=== PATIENT | male | born 1990 | race Caucasian/White ===

== ENCOUNTER 2022-12-23 21:51 | Emergency (ER) | payer OTHER, SELFPAY ==
[2022-12-23] VITALS (8 sets, daily range): BP systolic 126–165; BP diastolic 81–97; PULSE 69–80; RESP 10; TEMP 36.3; O2SAT 96–97; BMI 28.7
--- NOTE | 2022-12-23 22:16 | CRLHL7_ITS ---
For Patients: As a result of the Century Cures Act, medical imaging exams and procedure reports are released immediately into your electronic medical record. You may view this report before your referring provider. If you have questions, please contact your health care provider. INDICATION: .LT FLANK PAIN RADIATING TO GROIN TECHNIQUE: CT abdomen and pelvis without contrast. COMPARISON: None. FINDINGS: Lower chest: The visualized lower lungs are aerated. No pleural or pericardial effusion. ABDOMEN: Liver: Normal attenuation. Gallbladder and biliary: Normal gallbladder without radiopaque stone. Normal caliber bile ducts. Spleen: Normal size and attenuation. Pancreas: The noncontrast pancreas is homogeneous in attenuation without peripancreatic inflammatory changes or ductal dilatation. Adrenal glands: Normal adrenal glands. Kidneys and ureters: Punctate bilateral nonobstructing nephrolithiasis. Mild left-sided hydroureteronephrosis secondary to a 1 millimeter stone in the UVJ. No right-sided hydroureteronephrosis. GI tract: The stomach is relatively decompressed. Normal caliber small and large bowel loops. Normal appendix. Vascular structures: Normal caliber abdominal aorta. Lymph nodes: No lymphadenopathy in the abdomen or pelvis by size criteria. Peritoneum: No free air, free fluid, or focal drainable fluid collection. PELVIS: Genitourinary system: Normal urinary bladder. Normal size prostate. SKELETAL STRUCTURES AND SOFT TISSUES: Bilateral gynecomastia. IMPRESSION: 1. Mild left-sided hydroureteronephrosis secondary to a 1 millimeter stone in the UVJ. 2. Punctate bilateral nonobstructive nephrolithiasis. Please note that all CT scans at this facility use dose modulation, iterative reconstruction, and/or weight-based dosing when appropriate to reduce radiation dose to as low as reasonably achievable. Dictated by Ray Cummins MD @ 12/23/2022 11:44:49 PM (Electronically Signed)
--- NOTE | 2022-12-23 22:19 | ED_ITS ---
HPI - Abdominal Pain General Chief Complaint: Abdominal Pain Stated Complaint: Left side back and abdominal pain Time Seen by Provider: 12/23/22 21:56 History of Present Illness HPI narrative: 32-year-old man presenting to the emergency department with complaint of left sided abdomen flank area sharp pain. Fairly constant. Did have a workout this morning including biking and some lifting but does not recall any particular injury. While at rest on the couch then felt what sounds like fairly abrupt onset of pain. Took some ibuprofen settled down and then has returned early afternoon. Increasing nausea did vomit once. Is not nauseated now. Pain persists. Seems to radiate down into his left testicle. No dysuria. Admits that has not been drinking very much. No hematuria. generally drinks a good deal of coffee. father with h/o kidney stones Related Data Previous Rx's Medication Instructions Recorded tamsulosin 0.4 mg capsule (Flomax) 0.4 mg PO DAILY #14 caps 12/24/22 Review of Systems Status of ROS Reports: 6 or more systems reviewed and unremarkable except as noted in History and below PFSH PFS Social History Smoking Status: Never smoker Do you use any of these nicotine containing products: None Second hand tobacco smoke exposure: No How often do you have a drink containing alcohol: monthly or less AUDIT-C Alcohol total score: 1 Non-prescribed substance use: denies use Exam Narrative: Exam Narrative: Tall well-built. pleasant. gregarious. appears mildly uncomfortable. skin a little clammy. cn 2 - 12 appears intact. lungs are clear. heart rrr and no mrg. back is without tenderness. no si area pain. negative michela's and anterior hip compression. moving all extremities without difficulty and well perfused. abdomen is soft and not particularly tender other than trace left percussive tenderness. no mass. no inguinal swelling or pain. no pain with hip flexion. gu exam not done. Const: Vital Signs, click to edit/add: Vital Signs - 24 hr 12/23/22 21:56 12/23/22 22:57 12/23/22 22:59 Temperature 97.3 F L Pulse Rate 72 74 Pulse Rate [Pulse Oximeter] 80 Respiratory Rate 10 L Blood Pressure 140/82 H Blood Pressure [Le ft Upper Arm] 165/97 H Pulse Oximetry 96 97 96 Oxygen Delivery Me thod Room Air 12/23/22 23:00 12/23/22 23:02 12/23/22 23:03 Temperature Pulse Rate 70 74 71 Pulse Rate [Pulse Oximeter] Respiratory Rate Blood Pressure 148/85 H Blood Pressure [Le ft Upper Arm] Pulse Oximetry 96 96 97 Oxygen Delivery Me thod 12/23/22 23:30 12/23/22 23:32 12/24/22 00:00 Temperature Pulse Rate 69 70 66 Pulse Rate [Pulse Oximeter] Respiratory Rate Blood Pressure 126/81 Blood Pressure [Le ft Upper Arm] Pulse Oximetry 96 97 97 Oxygen Delivery Me thod 12/24/22 00:01 12/24/22 00:02 Temperature Pulse Rate 75 73 Pulse Rate [Pulse Oximeter] Respiratory Rate Blood Pressure 132/97 H Blood Pressure [Le ft Upper Arm] Pulse Oximetry 97 96 Oxygen Delivery Me thod Documenting provider has reviewed patient's vital signs: yes Course Vital Signs Vital signs: Initial Vital Signs Temperature 97.3 F L 12/23/22 21:56 Temperature Source Temporal Artery Scan 12/23/22 21:56 Pulse Rate 80 12/23/22 21:56 Pulse Rhythm 12/23/22 21:56 Respiratory Rate 10 L 12/23/22 21:56 Blood Pressure 165/97 H 12/23/22 21:56 Blood Pressure Mean 119 12/23/22 21:56 Blood Pressure Position Sitting 12/23/22 21:56 Pulse Oximetry 96 12/23/22 21:56 Oxygen Delivery Method 12/23/22 21:56 Vital Signs Temperature 97.3 F L 12/23/22 21:56 Pulse Rate 80 12/23/22 21:56 Respiratory Rate 10 L 12/23/22 21:56 Blood Pressure 165/97 H 12/23/22 21:56 Pulse Oximetry 96 12/23/22 21:56 Oxygen Delivery Method 12/23/22 21:56 Temperature 97.3 F L 12/23/22 21:56 Pulse Rate 73 12/24/22 00:02 Respiratory Rate 10 L 12/23/22 21:56 Blood Pressure 132/97 H 12/24/22 00:01 Pulse Oximetry 96 12/24/22 00:02 Oxygen Delivery Method 12/23/22 21:56 MDM - Abdominal Pain MDM Narrative Medical decision making narrative: iv and ns fluids established. ddx includes back strain/radiculitis, uti, constipation, hernia, epididymoorchitis though i think ureteral stone and colic most likely. can image later but prudent to do today and Chip notes quality of his med insurance. discussed pain management. will begin with ketorolac. noncon ct abd/pelvis reviewed by me reveals sub-3mm distal left ureteral stone and associated hydro. also numerous punctate bilateral nephrolithiasis. ua most notable for ketones. given a dose of flomax and with recurrence of nausea, also given zofran on reassessment is markedly improved, comfortable. see pt dc plan Lab Data Attestation: I reviewed the patient's lab results. Labs: Lab Results 12/23/22 12/23/22 12/23/22 Range/Units 22:40 22:40 22:55 WBC 12.25 H (4.50-11.00) K/uL RBC 5.54 (4.30-5.90) m/uL Hgb 17.0 (13.5-17.5) gm/dL Hct 48.9 (37.0-53.0) % MCV 88 (80-100) fL MCH 31 (26-34) pg MCHC 35 (32-36) gm/dL RDW Coeff of Asha 11.8 (11.5-15.5) % Plt Count 221 (140-440) K/uL Neut % (Auto) 83.0 H (42.0-72.0) % Lymph % (Auto) 9.9 L (20-44) % [place] % (Auto) 5.3 (0.0-11.0) % Eos % (Auto) 0.5 (0.0-7.0) % Baso % (Auto) 0.2 (0.0-3.0) % Neut # (Auto) 10.20 H (1.7-7.0) K/uL Lymph # (Auto) 1.20 (0.90-2.90) K/uL [place] # (Auto) 0.60 (0.00-0.90) K/UL Eos # (Auto) 0.10 (0.00-0.50) K/uL Baso # (Auto) 0.00 (0.00-0.30) K/uL Sodium 138 (135-149) mmol/L Potassium 3.8 (3.6-5.1) mmol/L Chloride 103 (96-114) mmol/L Carbon Dioxide 26 (20-32) mmol/L BUN 22 (5-24) mg/dL Creatinine 1.5 (0.5-1.5) mg/dL Estimated Creat Clear 84.50 Estimated GFR 63 ml/min Glucose 127 H (60-115) mg/dL Calcium 9.3 (8.4-10.6) mg/dL Urine Color Yellow (Yellow) Urine Appearance Slightly Cloudy A (Clear) Urine pH 7.0 (5.0-8.5) Ur Specific [place] 1.020 (1.000-1.030) Urine Protein 1+ A (Negative) Urine Glucose (UA) Negative (Negative) Urine Ketones 3+ A (Negative) Urine Blood Negative (Negative) Urine Nitrite Negative (Negative) Urine Bilirubin Negative (Negative) Urine Urobilinogen 0.2 (0.2-1.0) Ur Leukocyte Esterase Negative (Negative) Urine RBC 0-2 (0-2) Urine WBC 0-2 (0-5) Ur Squamous Epith Cells Few (None-Few) Urine Bacteria Moderate A (None) Urine Mucus Few A (None) Discharge Plan Discharge Clinical Impression: Ureteral calculus, Nephrolithiasis, Ureteral colic, Dehydration Patient Disposition: Home, Self-Care Condition: Improved Additional Instructions: Continue to focus on hydration trying to drink 2-3 L of water daily. Strain your urine over this next week. Can take up to 800 mg of ibuprofen per dose or alternatively up to 500 mg of naproxen 2 times daily. Either can be combined with the medications prescribed today. Be seen/return for marked increase in/uncontrolled pain, repeated vomiting, fever, pain lasting to 5 days. Flomax at pharmacy. Percocet and Zofran from [employer]. Prescriptions: New tamsulosin [Flomax] 0.4 mg capsule 0.4 mg PO DAILY Qty: 14 0RF Follow Up/Referrals: Provider,Not a Local [Primary Care Provider] - Stand Alone Forms: [employer] Info Instructions
[2022-12-23] MEDS: KETOROLAC 30 MG/ML inj IVP (22:38)
[2022-12-23] MEDS: 0.9 % SODIUM CHLORIDE 1000 ml 1,000 ML IV (22:38)
[2022-12-23 22:47] LABS: Basophils Percent Auto 0.2 % (0.0-3.0); Eosinophils Percent Auto 0.5 % (0.0-7.0); Hematocrit 48.9 % (37.0-53.0); Immature Granulocytes Pct Auto 1.1 %; Lymphocytes Percent Auto 9.9 % (20-44); Mean Corpuscular HGB Conc 35 gm/dL (32-36); Mean Corpuscular Hemoglobin 31 pg (26-34); Mean Corpuscular Volume 88 fL (80-100); Monocytes Percent Auto 5.3 % (0.0-11.0); Platelet Count* 221 K/uL (140-440); RDW Coefficient of Variation % 11.8 % (11.5-15.5); Red Blood Count 5.54 m/uL (4.30-5.90); White Blood Count* 12.25 K/uL (4.50-11.00)
[2022-12-23 23:06] LABS: Slide Review Reflex No
[2022-12-23 23:09] LABS: Chloride* 103 mmol/L (96-114); Potassium* 3.8 mmol/L (3.6-5.1); Sodium* 138 mmol/L (135-149)
[2022-12-23 23:12] LABS: Blood Urea Nitrogen* 22 mg/dL (5-24); Carbon Dioxide* 26 mmol/L (20-32); Creatinine* 1.5 mg/dL (0.5-1.5); Estimated Glomerular Filt Rate 63 ml/min; Glucose* 127 mg/dL (60-115)
[2022-12-23 23:12] LABS: Appearance Urine Slightly Cloudy (Clear); Bilirubin Urine Negative (Negative); Blood Urine Negative (Negative); Color Urine Yellow (Yellow); Glucose Urine Negative (Negative); Ketones Urine 3+ (Negative); Leukocyte Esterase Urine Negative (Negative); Nitrite Urine Negative (Negative); Protein Urine 1+ (Negative); Urobilinogen Urine 0.2 (0.2-1.0)
[2022-12-23 23:13] LABS: Calcium* 9.3 mg/dL (8.4-10.6)
[2022-12-23] MEDS: TAMSULOSIN HCL 0.4 MG CAPSULE PO (23:13)
[2022-12-23] MEDS: ONDANSETRON 2 MG/ML inj 4 MG IVP (23:13)
[2022-12-23 23:21] LABS: Bacteria Urine Moderate; Mucus Urine Few; RBC Urine 0-2 (0-2); Squamous Epithelial Cell Urine Few (None-Few); WBC Urine 0-2 (0-5)
[2022-12-24] VITALS: PULSE 66; O2SAT 97
[2022-12-24 00:01] VITALS: BP 132/97; PULSE 75; O2SAT 97
[2022-12-24 00:02] VITALS: PULSE 73; O2SAT 96
== END 2022-12-24 00:34 | disposition home or self-care (01) ==
PROVIDERS: Emergency Provider Family Medicine
DX: N23 Unspecified renal colic (principal); N20.0 Calculus of kidney; E86.0 Dehydration
CPT/HCPCS: 36415; 74176; 80048; 81001; 85025; 87086; 96361; 96374; 96375; 99284; 99285; A9270; J1885; J2405; J7030

== ENCOUNTER 2024-07-18 12:39 | Emergency (ER) | payer OTHER, SELFPAY ==
[2024-07-18 12:43] VITALS: BP 146/104; PULSE 73; RESP 18; O2SAT 98; BMI 28.7
--- NOTE | 2024-07-18 12:58 | CT_ITS ---
Patient: DORA JOYCE Facility:?[facility] Patient ID:?[id number] Site Patient ID:?[id number]. Site :?[id number] Study:?CT-Abdomen/Pelvis without-07/18/2024 1:20:30 PM Ordering Physician:Christie Jacobson Final Report: INDICATION: Right flank pain. History of urolithiasis COMPARISON: December 23, 2022 TECHNIQUE: CT examination of the abdomen and pelvis was performed without intravenous contrast. Thin section axial images were obtained from the lung bases through the pubic symphysis. Oral contrast was not administered. Please note that all CT scans at this facility use dose modulation, iterative reconstruction, and/or weight-based dosing when appropriate to reduce radiation dose to as low as reasonably achievable. FINDINGS: LUNG BASES: The lung bases as visualized appear normal.The heart size is normal at the lung bases. LIVER/BILIARY SYSTEM:The liver is normal in size and configuration given the lack of intravenous contrast. There is no visible focal mass and there is no intra- or extra hepatic biliary ductal dilatation.Contracted but otherwise unremarkable appearing gallbladder ADRENALS: Normal non-contrast appearance KIDNEYS, URETERS and BLADDER:Intrarenal calculi bilaterally. Mild right hydronephrosis and right hydroureter due to a 2.5 millimeter calculus in the mid right ureter at about the level of the umbilicus. No calculi distal to this level or within the bladder. SPLEEN:Normal non-contrast appearance. PANCREAS: Normal non-contrast appearance. RETROPERITONEUM and MESENTERY: There is no mass, adenopathy or aortic aneurysm. GASTROINTESTINAL SYSTEM: There is no evidence of diverticulitis, colitis, mechanical obstruction, or appendicitis. The small bowel as visualized appears normal. PELVIS: No mass, adenopathy or free fluid. OSSEOUS STRUCTURES and ABDOMINAL WALL: There is an age-appropriate appearance of the osseous structures.No significant abdominal wall defect. OTHER: No free fluid or free air. IMPRESSION: Intrarenal calculi bilaterally. Right-sided obstructive uropathy is noted due to a 2.5 millimeter calcified calculus in the mid right ureter at about the level of the umbilicus. Please note that all CT scans at this facility use dose modulation, iterative reconstruction, and/or weight-based dosing when appropriate to reduce radiation dose to as low as reasonably achievable. Dictated by John Cates MD @ 07/18/2024 1:31:49 PM Signed by:?John Cates MD @07/18/2024 1:31:49 PM (Electronic Signature)
--- NOTE | 2024-07-18 13:15 | ED.GENADULT ---
HPI - General Adult General Chief complaint: Flank Pain Stated complaint: c/o kidney stone Time Seen by Provider: 07/18/24 12:49 Source: patient Mode of arrival: ambulatory Limitations: no limitations History of Present Illness HPI narrative: 34-year-old male presenting today with right flank pain. Patient states that about 18 months ago he had a left-sided kidney stone and this feels very similar. Her previous stone passed without intervention. He denies nausea or vomiting. He denies fevers or chills. States that sometimes the pain does radiate into the groin area. He states that his urine was much darker than normal this morning. Nothing seems to make the pain better or worse. Patient takes Vyvanse and no other medications. Related Data Previous Rx's ?Medication ?Instructions ?Recorded tamsulosin 0.4 mg capsule (Flomax) 0.4 mg PO DAILY #14 caps 12/24/22 ketorolac 10 mg tablet 10 mg PO TID 5 days #15 tabs 07/18/24 tamsulosin 0.4 mg capsule (Flomax) 0.4 mg PO QHS #14 caps 07/18/24 Allergies Allergy/AdvReac Type Severity Reaction Status Date / Time No Known Drug Allergies Allergy Verified 07/18/24 13:01 Review of Systems Status of ROS: Reports: 10 or more systems reviewed and unremarkable except as noted in History and below [facility] Social History Smoking Status: Never smoker Do you use any of these nicotine containing products: None Second hand tobacco smoke exposure: No How often do you have a drink containing alcohol: monthly or less AUDIT-C Alcohol total score: 1 Non-prescribed substance use: denies use Exam Narrative: Exam Narrative: Well-nourished well-developed patient in no acute distress. Alert and oriented. Answers questions appropriately. Mood and affect are appropriate. Thoughts are goal oriented and rational. No tangential or magical thinking noted. Patient speaks in full sentences without needing to catch his breath. HEENT: Normocephalic atraumatic. Pupils are equally round reactive to light. Extraocular muscles are intact. Conjunctivae are moist without any icterus noted. Moist mucous membranes. Cardiovascular: Heart is regular rate and rhythm S1 and S2 are present without any murmurs. Lungs: Clear to auscultation bilaterally no wheezes rhonchi or rales are appreciated. Patient takes deep breaths without any discomfort. Abdomen: Soft and nontender nondistended with normal bowel sounds. No guarding or rebound. No masses or organomegaly appreciated. Very mild right-sided CVA tenderness. Skin: Well perfused. Const: Vital Signs, click to edit/add: Vital Signs - 24 hr 07/18/24 12:43 Pulse Rate [Left P ulse Oximeter] 73 Respiratory Rate 18 Blood Pressure [Ri ght Upper Arm] 146/104 H Pulse Oximetry 98 Oxygen Delivery Me thod Room Air Course Course ED Course: UA shows 3+ blood with greater than 100 rbc's. Normal lactate. CBC unremarkable. Chemistries are unremarkable. Ultrasound shows a 2.5 mm ureteral stone. No evidence of infection. Vital Signs Vital signs: Initial Vital Signs Pulse Rate 73 07/18/24 12:43 Respiratory Rate 18 07/18/24 12:43 Blood Pressure 146/104 H 07/18/24 12:43 Blood Pressure Mean 118 H 07/18/24 12:43 Blood Pressure Position Sitting 07/18/24 12:43 Pulse Oximetry 98 07/18/24 12:43 Oxygen Delivery Method Room Air 07/18/24 12:43 Vital Signs Pulse Rate 73 07/18/24 12:43 Respiratory Rate 18 07/18/24 12:43 Blood Pressure 146/104 H 07/18/24 12:43 Pulse Oximetry 98 07/18/24 12:43 Oxygen Delivery Method Room Air 07/18/24 12:43 Pulse Rate 73 07/18/24 12:43 Respiratory Rate 18 07/18/24 12:43 Blood Pressure 146/104 H 07/18/24 12:43 Pulse Oximetry 98 07/18/24 12:43 Oxygen Delivery Method Room Air 07/18/24 12:43 Medical Decision Making MDM Narrative Medical decision making narrative: 34-year-old male with a right-sided kidney stone. Will treat with Flomax and Toradol p.r.n.. Increase fluid intake. IV fluids not given today as there is a shortage of IV fluids. Lab Data Lab results reviewed: Yes I reviewed the patient's lab results Labs: Lab Results 07/18/24 07/18/24 Range/Units 13:07 14:03 WBC 5.70 (4.50-11.00) K/uL RBC 5.21 (4.30-5.90) m/uL Hgb 15.9 (13.5-17.5) gm/dL Hct 46.7 (37.0-53.0) % MCV 90 (80-100) fL MCH 31 (26-34) pg MCHC 34 (32-36) gm/dL RDW Coeff of Asha 12.0 (11.5-15.5) % Plt Count (140-440) K/uL Neut % (Auto) 61.8 (42.0-72.0) % Lymph % (Auto) 27.0 (20-44) % [place] % (Auto) 9.1 (0.0-11.0) % Eos % (Auto) 1.4 (0.0-7.0) % Baso % (Auto) 0.5 (0.0-3.0) % Neut # (Auto) 3.52 (1.7-7.0) K/uL Lymph # (Auto) 1.54 (0.90-2.90) K/uL [place] # (Auto) 0.50 (0.00-0.90) K/UL Eos # (Auto) 0.08 (0.00-0.50) K/uL Baso # (Auto) 0.03 (0.00-0.30) K/uL Abs Immat Gran (auto) 0.01 (0.00-0.30) K/uL Imm/Tot Granulo (auto) 0.2 % Sodium 138 (135-149) mmol/L Potassium 4.2 (3.6-5.1) mmol/L Chloride 105 (96-114) mmol/L Carbon Dioxide 25 (20-32) mmol/L Anion Gap 8 (7-15) mEq/L BUN 16 (5-24) mg/dL Creatinine 0.9 (0.5-1.5) mg/dL Estimated Creat Clear 138.23 Estimated GFR 115 ml/min Glucose 76 (60-115) mg/dL Lactate 1.0 (0.5-1.9) mmol/L Calcium 9.2 (8.4-10.6) mg/dL Total Bilirubin 1.3 (0.1-1.5) mg/dL Direct Bilirubin 0.3 (0.0-0.5) mg/dL AST 42 H (12-35) U/L ALT 54 H (4-50) U/L Alkaline Phosphatase 51 (40-150) U/L C-Reactive Protein < 0.5 L (0.5-1.0) mg/dL Total Protein 7.1 (6.0-8.3) g/dL Albumin 4.5 (3.3-5.0) g/dL Lipase 116 (23-300) U/L Urine Color Yellow (Yellow) Urine Appearance Slightly Cloudy A (Clear) Urine pH 7.5 (5.0-8.5) Ur Specific [place] 1.020 (1.000-1.030) Urine Protein Negative (Negative) Urine Glucose (UA) Negative (Negative) Urine Ketones Negative (Negative) Urine Blood 3+ A (Negative) Urine Nitrite Negative (Negative) Urine Bilirubin Negative (Negative) Urine Urobilinogen 1.0 (0.2-1.0) Ur Leukocyte Esterase Negative (Negative) Urine RBC >100 A (0-2) Urine WBC 2-5 (0-5) Ur Squamous Epith Cells None (None-Few) Amorphous Sediment Moderate A (None) Urine Bacteria Few A (None) Urine Mucus Moderate A (None) Imaging Data CT scan - abdomen: Attestation: I have reviewed the pertinent imaging results. Radiologist's impression: TECHNIQUE: CT examination of the abdomen and pelvis was performed without intravenous contrast. Thin section axial images were obtained from the lung bases through the pubic symphysis. Oral contrast was not administered. Please note that all CT scans at this facility use dose modulation, iterative reconstruction, and/or weight-based dosing when appropriate to reduce radiation dose to as low as reasonably achievable. FINDINGS: LUNG BASES: The lung bases as visualized appear normal.The heart size is normal at the lung bases. LIVER/BILIARY SYSTEM:The liver is normal in size and configuration given the lack of intravenous contrast. There is no visible focal mass and there is no intra- or extra hepatic biliary ductal dilatation.Contracted but otherwise unremarkable appearing gallbladder ADRENALS: Normal non-contrast appearance KIDNEYS, URETERS and BLADDER:Intrarenal calculi bilaterally. Mild right hydronephrosis and right hydroureter due to a 2.5 millimeter calculus in the mid right ureter at about the level of the umbilicus. No calculi distal to this level or within the bladder. SPLEEN:Normal non-contrast appearance. PANCREAS: Normal non-contrast appearance. RETROPERITONEUM and MESENTERY: There is no mass, adenopathy or aortic aneurysm. GASTROINTESTINAL SYSTEM: There is no evidence of diverticulitis, colitis, mechanical obstruction, or appendicitis. The small bowel as visualized appears normal. PELVIS: No mass, adenopathy or free fluid. OSSEOUS STRUCTURES and ABDOMINAL WALL: There is an age-appropriate appearance of the osseous structures.No significant abdominal wall defect. OTHER: No free fluid or free air. IMPRESSION: Intrarenal calculi bilaterally. Right-sided obstructive uropathy is noted due to a 2.5 millimeter calcified calculus in the mid right ureter at about the level of the umbilicus. Discharge Plan Discharge Clinical Impression: Kidney stone Patient Disposition: Home, Self-Care Condition: Stable Additional Instructions: Increase water intake. Return to the ER if you develop fever or pain that cannot be controlled. Prescriptions: New tamsulosin [Flomax] 0.4 mg capsule 0.4 mg PO QHS Qty: 14 0RF ketorolac 10 mg tablet 10 mg PO TID 5 Days Qty: 15 0RF No Action tamsulosin [Flomax] 0.4 mg capsule 0.4 mg PO DAILY Qty: 14 0RF Follow Up/Referrals: Provider,Not a Local [Non-Staff] - Stand Alone Forms: [employer] Info Instructions
--- OUTSIDE RECORDS SUMMARY | 2024-07-18 13:25 | XMS_ITS | Clinical Summary ---
Author Organization [facility] Address [place], [place] [address] Care Team Providers Care Fire Dispatcher Name Role Phone Juvencio Russell MD Primary Care Provider Allergies No known active allergies Medications Medication Sig Dispensed Refills Start Date End Date Status finasteride (PROPECIA) 1 mg tabletIndications:Male pattern baldness Take 1 Tablet (1 mg) by mouth every morning. 90 Tablet 3 10/21/2023 Active minoxidiL (ROGAINE) 2 % topical solution 10/11/2023 Active lisdexamfetamine (Vyvanse) 50 mg capsuleIndications:ADH D (attention deficit hyperactivity disorder), inattentive type Take 1 Capsule (50 mg) by mouth once daily. 30 Capsule 06/16/2024 Active loratadine (CLARITIN) 10 mg tablet Take 10 mg by mouth once daily. 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 Encounters Date Type Department Care Team Description 06/28/2024 Telephone [facility] [address] [place] [address] Juvencio Russell MD Questions 06/01/2024 8:45 AM CDT Office Visit [facility] [address] [place] [address] Juvencio Russell MD Medication Management; Elbow Burn (left) 06/01/2024 Travel 04/18/2024 Telephone [facility] [address] [place] [address] Juvencio Russell MD Medication Management (Clarifying refills dates for Vyvanse) from Last 3 Months Immunizations Name Administration Dates Next Due COVID-19 VACCINE SPIKEVAX (M ODERNA 50MCG/0.5ML) 12YO+ PFS 10/21/2023 COVID-19 vaccine (Pfizer-BioNTech 30mcg/0.3mL) P F, MDV 02/06/2021,01/13/2021 Influenza, IIV4 10/21/2023 Influenza,CCIIV4 PRESERV FREE 09/23/2019 Tdap 05/26/2019 Family History Medical History Relation Name Comments Heart Disease Father CAD Hypertension Father Nephrolithiasis Father Heart Disease Maternal Grandfather [place] Heart Disease Paternal Grandfather [place] Relation Name Status Comments Father Maternal Grandfather Paternal Grandfather Social History Tobacco Use Types Packs/Day Years Used Date Smoking Tobacco: Never Smokeless Tobacco: Never Alcohol Use Standard Drinks/Week Comments Not Currently 0 (1 standard drink = 0.6 oz pur e alcohol) PHQ-2 Answer Date Recorded PHQ-2 TOTAL SCORE 0 06/01/2024 Social Connections Answer Date Recorded Frequency of Communication with Friends and Fami ly Not on file 05/06/2024 Financial Resource Strain Answer Date R ecorded Difficulty of Paying Living Expenses 3 05/06/2023 Difficulty of Paying Living Expenses Not on file 05/06/2023 Food Insecurity Answer Date Recorded Worried About Running Out of Food in the Last Ye ar 1 05/06/2023 Transportation Needs Answer Date Record ed Lack of Transportation (Medical) 1 05/06/2023 Housing Stability Answer Date Recorded Unable to Pay for Housing in the Last Year 1 05/06/2023 Sex and Gender Information Value Date Recorded Sex Assigned at Not on file Gender Identity Not on file Sexual Orientation Not on file Obstetrics History Last Filed Vital Signs Vital Sign Reading Time Taken Comments Blood Pressure 132/86 06/01/2024 8:49 AM CDT Pulse 68 06/01/2024 8:49 AM CDT Temperature - - Respiratory Rate - - Oxygen Saturation - - Inhaled Oxygen Concentration - - Weight 103.9 kg (229 lb) 06/01/2024 8:49 AM CDT Height 190.5 cm (6' 3) 06/01/2024 8:49 AM CDT Body Mass Index 28.62 06/01/2024 8:49 AM CDT Plan of Treatment Health Maintenance Due Date Last Done Comments HIV for age 15-65 2005 Hepatitis C screening for age 18-79 2008 COVID-19 vaccine series ( season) 2024 10/21/2023, 09/15/2021, 02/06/2021, Additional history exists Influenza for age 9-49 06/11/2024 10/21/2023, 2018 BMI (ht and wt on same day) for age 18+ 06/01/2025 06/01/2024, 01/31/2024, 05/06/2023, Additional history exists Depression screening for age 12+ 06/01/2025 06/01/2024, 05/06/2023, 12/10/2020 Tetanus booster 05/26/2029 05/26/2019 Tdap Completed 05/26/2019 Pneumococcal series for age 6-64 Aged Out No longer eligible based on patient's age to complete this topic Care Teams Fire Dispatcher Relationship Specialty Start [place] [address] [place] [address] PCP - General Family Practice 12/06/20
[2024-07-18 13:42] LABS: Appearance Urine Slightly Cloudy (Clear); Bilirubin Urine Negative (Negative); Blood Urine 3+ (Negative); Color Urine Yellow (Yellow); Glucose Urine Negative (Negative); Ketones Urine Negative (Negative); Leukocyte Esterase Urine Negative (Negative); Nitrite Urine Negative (Negative); Protein Urine Negative (Negative); pH Urine 7.5 (5.0-8.5)
[2024-07-18 14:05] LABS: Amorphous Sediment Urine Moderate; Bacteria Urine Few; Mucus Urine Moderate; RBC Urine >100 (0-2)
[2024-07-18 14:10] LABS: Basophils Absolute Auto 0.03 K/uL (0.00-0.30); Basophils Percent Auto 0.5 % (0.0-3.0); Eosinophils Absolute Auto 0.08 K/uL (0.00-0.50); Eosinophils Percent Auto 1.4 % (0.0-7.0); Hematocrit 46.7 % (37.0-53.0); Hemoglobin* 15.9 gm/dL (13.5-17.5); Immature Granulocytes Abs Auto 0.01 K/uL (0.00-0.30); Immature Granulocytes Pct Auto 0.2 %; Lymphocytes Absolute Auto 1.54 K/uL (0.90-2.90); Mean Corpuscular HGB Conc 34 gm/dL (32-36); Mean Corpuscular Hemoglobin 31 pg (26-34); Mean Corpuscular Volume 90 fL (80-100); Monocytes Percent Auto 9.1 % (0.0-11.0); Neutrophils Absolute Auto 3.52 K/uL (1.7-7.0); Neutrophils Percent Auto 61.8 % (42.0-72.0); Red Blood Count 5.21 m/uL (4.30-5.90)
[2024-07-18 14:27] LABS: Slide Review Reflex No
[2024-07-18 14:30] LABS: Albumin* 4.5 g/dL (3.3-5.0); Chloride* 105 mmol/L (96-114)
[2024-07-18 14:31] LABS: Potassium* 4.2 mmol/L (3.6-5.1); Sodium* 138 mmol/L (135-149)
[2024-07-18 14:33] LABS: Creatinine* 0.9 mg/dL (0.5-1.5); Est. Creatinine Clearance* 138.23; Estimated Glomerular Filt Rate 115 ml/min
[2024-07-18 14:34] LABS: Alanine Aminotransferase* 54 U/L (4-50); Alkaline Phosphatase* 51 U/L (40-150); Anion Gap 8 mEq/L (7-15); Aspartate Amino Transferase* 42 U/L (12-35); Bilirubin Direct* 0.3 mg/dL (0.0-0.5); Bilirubin Total* 1.3 mg/dL (0.1-1.5); Blood Urea Nitrogen* 16 mg/dL (5-24); Calcium* 9.2 mg/dL (8.4-10.6); Carbon Dioxide* 25 mmol/L (20-32); Glucose* 76 mg/dL (60-115); Lipase* 116 U/L (23-300); Total Protein* 7.1 g/dL (6.0-8.3)
[2024-07-18 14:40] VITALS: BP 132/87; PULSE 71; RESP 18; TEMP 36.8; O2SAT 99
[2024-07-18 14:46] LABS: C Reactive Protein* < 0.5 mg/dL (0.5-1.0)
== END 2024-07-18 15:07 | disposition home or self-care (01) ==
PROVIDERS: Emergency Provider Family Medicine; PCP Family Medicine
DX: N20.0 Calculus of kidney (principal)
CPT/HCPCS: 36415; 74176; 80048; 80076; 81001; 83605; 83690; 85025; 86140; 87086; 96372; 99284

== ENCOUNTER 2025-08-18 12:35 | Emergency (ER) | payer OTHER, SELFPAY ==
--- OUTSIDE RECORDS SUMMARY | 2025-08-18 12:37 | XMS_ITS | Encounter Summary ---
Author Organization [place] Address [facility] [place] [address] Care Team Providers Care Administration Specialist Name Role Phone No Ref-Primary, Physician Primary Care Provider Nicholas Robbins MD Unavailable Sergo Tesfaye MD Unavailable Reason for Visit * Reason Onset Date Comments Appointment 01/23/2025 Left elbow nerve ultrasound to assess for ulnar nerve entrapment Encounter Details Date Type Department Care Team (Late st Contact Info) Description 01/23/2025 [facility] [address] [place] [address] None Appointment (Left elbow nerve ultrasound to assess for ulnar nerve entrapment) Social History Tobacco Use Types Packs/Day Years Used Date Smoking Tobacco: Never Smokeless Tobacco: Never Alcohol Use Standard Drinks/Week Comments Yes 0 (1 standard drink = 0.6 oz pur e alcohol) rarely Sex and Gender Information Value Date Recorded Sex Assigned at Not on file Legal Sex Male 7:29 AM CDT Gender Identity Not on file Sexual Orientation Not on file documented as of this encounter Miscellaneous Notes * Telephone Encounter - Era Morales - 01/23/2025 10:43 AM CDT [facility] Call Center Phone Message May a detailed message be left on voicemail: yes Reason for Call: Pt has an order for an Left elbow nerve ultrasound to assess for ulnar nerve entrapment referred by EVERT DAVIS. Global Professional unable to schedule given protocols. Please contact Pt to schedule at [phone] Action Taken: Message routed to: [facility] Travel Screening: Not Applicable documented in this encounter Plan of Treatment Upcoming Encounters Date Type Department Care Team (Latest Contact Info) Description 08/30/2025 9:15 AM PUMPER GAUGER APPRENTICE Hospital Encounter [address] [phone] Sergo Tesfaye MD [address] [place], [place] [address] 08/30/2025 9:15 AM PUMPER GAUGER APPRENTICE - 08/30/2025 10:40 AM PUMPER GAUGER APPRENTICE Surgery [address] [phone] Sergo Tesfaye MD [address] [place], [place] [id number] RELEASE, CUBITAL TUNNEL, ULNAR NERVE TRANSPOSITION 09/12/2025 10:30 AM PUMPER GAUGER APPRENTICE Office Visit [facility] [address] [place], [place] [address] Seng Philip PA-C [place] [address] [facility] [place] [address] Scheduled Procedures Name Priority Associated Diagnoses Date/Ti me RELEASE, CUBITAL TUNNEL Ulnar nerve entrapment at elbow, left 08/30/2025 9:15 AM PUMPER GAUGER APPRENTICE documented as of this encounter Visit Diagnoses Not on filedocumented in this encounter Care Teams Administration Specialist Relationship Specialty Start Date End Date No Ref-Primary, Physician PCP - General 02/19/25 Nicholas Robbins MD [address] [place] [address] [id number] [place], [place] [address] Assigned Neuroscience Provider 03/02/25 Sergo Tesfaye MD [address] [place] [address] Assigned Musculoskeletal Provider 04/02/25 documented as of this encounter
--- OUTSIDE RECORDS SUMMARY | 2025-08-18 12:37 | XMS_ITS | Clinical Summary ---
Author Organization [facility] Address [address] [place] [id number] Care Team Providers Care Early Intervention School Psychologist Name Role Phone Juvencio Russell MD Primary Care Provider Allergies No known active allergies Medications minoxidiL (ROGAINE) 2 % topical solution 4 Active loratadine (CLARITIN) 10 mg tablet Take 10 mg by mouth once daily. Active dextroamphetamine -amphetamine (AdderalL) 10 mg tabletIndications :ADHD (attention deficit hyperactivity disorder), inattentive type Take 1 Tablet (10 mg) by mouth once daily. Take in afternoon 30 Tablet 5 Active lisdexamfetamine (Vyvanse) 40 mg capsuleIndication s:ADHD (attention deficit hyperactivity disorder), inattentive type Take 1 Capsule (40 mg) by mouth once daily. 30 Capsule 5 025 Active lisdexamfetamine (Vyvanse) 40 mg capsuleIndication s:ADHD (attention deficit hyperactivity disorder), inattentive type Take 1 Capsule (40 mg) by mouth once daily. 30 Capsule 5 026 Active lisdexamfetamine (Vyvanse) 40 mg capsuleIndication s:ADHD (attention deficit hyperactivity disorder), inattentive type Take 1 Capsule (40 mg) by mouth once daily. 30 Capsule 6 Active lisdexamfetamine (Vyvanse) 40 mg capsuleIndication s:ADHD (attention deficit hyperactivity disorder), inattentive type Take 1 Capsule (40 mg) by mouth once daily. 30 Capsule 06 025 Discontin ued(*Med complete/ Regimen complete/ Level of care change) lisdexamfetamine (Vyvanse) 40 mg capsuleIndication s:ADHD (attention deficit hyperactivity disorder), inattentive type Take 1 Capsule (40 mg) by mouth once daily. 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 Sergo Tesfaye at [facility]) 08/13/2025 Travel 07/16/2025 Telephone [facility] [id number] [place] [address] Juvencio Russell MD Refill Request (dextroamphetamine-am phetamine (AdderalL) 10 mg tablet) 06/27/2025 8:00 AM CDT Ancillary Procedure [facility] [address] [address] [facility] [address] [place] [address] 06/27/2025 Travel from Last 3 Months Immunizations Immunization Administration Dates Next Due COVID-19 VACCINE SPIKEVAX (M ODERNA 50MCG/0.5ML) 12YO+ PFS 09/26/2024,10/21/2023 COVID-19 vaccine ([employer] 30mcg/0.3mL) P F, MDV 02/06/2021,01/13/2021 INFLUENZA, IIV3 PF (AGE >= 6 MO) 09/26/2024 Influenza, IIV4 10/21/2023 Influenza,CCIIV4 PRESERV FREE 09/23/2019 Tdap 05/26/2019 Family History Medical History Relation Name Comments Coronary artery disease Father Heart Disease Father CAD Hypertension Father Nephrolithiasis Father Heart Disease Maternal Grandfather MS Heart Disease Paternal Grandfather MS Relation Name Status Comments Father Maternal Grandfather Paternal Grandfather Social History Tobacco Use Types Packs/Day Years Used Date Smoking Tobacco: Never Smokeless Tobacco: Never Alcohol Use Standard Drinks/Week Comments Not Currently 0 (1 standard drink = 0.6 oz pur e alcohol) PHQ-2 Answer Date Recorded PHQ-2 TOTAL SCORE 0 05/14/2025 Social Connections Answer Date Recorded Do you often feel lonely or isolated from those around you? 0 10/11/2024 Alcohol Use Answer Date Recorded How often do you have a drink containing alcohol ? 1 08/13/2025 How many drinks containing a lcohol do you have on a typical day when you are drinking? 0 08/13/2025 How often do you have five or more drinks on one occasion? 0 08/13/2025 Financial Resource Strain Answer Date R ecorded Difficulty of Paying Living Expenses 3 10/11/2024 Difficulty of Paying Living Expenses Not on file 10/11/2024 Food Insecurity Answer Date Recorded Do you worry your food will run out before you are able to buy more? 1 10/11/2024 Transportation Needs Answer Date Record ed Does lack of transportation keep you from medica l appointments? 1 10/11/2024 Does lack of transportation keep you from work, meetings or getting things that you need? 1 10/11/2024 Housing Stability Answer Date Recorded What is your housing situation today? 1 10/11/2024 Utilities Answer Date Recorded Do you have trouble paying f or utilities (for example, heat, electricity, water, phone)? 1 10/11/2024 Sex and Gender Information Value Date Recorded Sex Assigned at Not on file Legal Sex Male 11:58 AM CDT Gender Identity Not on file Sexual Orientation Not on file Obstetrics History Last Filed Vital Signs Vital Sign Reading Time Taken Comments Blood Pressure 120/90 08/13/2025 8:11 AM PLUG PASTER Pulse 84 08/13/2025 8:09 AM PLUG PASTER Temperature 36.7 C (98.1 F) 08/13/2025 8:09 AM PLUG PASTER Respiratory Rate 12 08/13/2025 8:09 AM PLUG PASTER Oxygen Saturation 97% 08/13/2025 8:09 AM PLUG PASTER Inhaled Oxygen Concentration - - Weight 108.2 kg (238 lb 9.6 oz) 08/13/2025 8:09 AM PLUG PASTER Height 190.5 cm (6' 3) 08/13/2025 8:09 AM PLUG PASTER Body Mass Index 29.82 08/13/2025 8:09 AM PLUG PASTER Plan of Treatment Health Maintenance Due Date Last Done Comments HIV for age 15-65 2005 Hepatitis C screening for age 18-79 2008 Hepatitis B series for 19+ (1 of 3 - 19+ 3-dose series) 2009 HPV series for age 9-45 (1 - 3-dose SCDM series) 2017 Influenza Vaccine (#1) 2025 , 10/21/2023, 09/23/2019 Depression screening for age 12+ 05/14/2026 05/14/2025, 06/01/2024, 05/06/2023, Additional history exists BMI (ht and wt on same day) for age 18+ 08/13/2026 08/13/2025, 05/14/2025, 10/16/2024, Additional history exists Tetanus booster 05/26/2029 05/26/2019 Lipids for age 35-44 05/14/2030 05/14/2025, 01/31/2024, 05/06/2023, Additional history exists RSV vaccine for adults or (1 - 1-dose 75+ series) 2065 Pneumococcal series for age 6-49 Aged Out No longer eligible based on patient's age to complete this topic Procedures Procedure Name Priority Date/Time Associated Diagnosis Comments CT CARDIAC CALCIUM SCORE ONLY WO SINGLE READ Routine 06/27/2025 8:16 AM CDT Family history of early CAD LIPID PANEL W REFLEX MEASURED LDL Routine 05/14/2025 9:04 AM CDT Lipid screening from Last 3 Months or Most Recently Relevant to Health Maintenance Results * CT CARDIAC CALCIUM SCORE ONLY WO SINGLE READ (06/27/2025 8:16 AM CDT) Anatomical Region Laterality Modality Computed Tomogra phy 06/27/2025 10:2 5 AM CDT Narrative 06/27/2025 10:25 AM CDT For Patients: As a result of the Cures Act, medical imaging exams and procedure reports are released immediately into your electronic medical record. You may view this report before your referring provider. If you have questions, please contact your health care provider. CT CARDIAC CALCIUM SCORING PATIENT HISTORY: Evaluate for coronary artery disease. REPORT: High-resolution, ECG-synchronized noncontrast computed tomography of the heart with attention to the coronary arteries was performed. Coronary calcification analyzed using Siemens calcium scoring software. These are the results of the evaluation: CT Calcium Scoring: This cardiac CT examination will provide you with a coronary artery calcium score. A coronary artery calcium score is a measurement of the amount of calcified plaque in the coronary arteries, the arteries that supply blood to the heart muscle. The coronary artery calcium score is calculated based on the number, size, and density of the calcified plaques in the coronary arteries. The amount of calcified coronary plaque has been shown to directly correlate with future risk for heart disease. The coronary artery calcium is a marker of how much plaque has accumulated in the mcdonald of the coronary arteries. It is not a test for blockages. This test is intended to assess cardiovascular risk in patients without symptoms. It is not intended to be a test for individuals with chest pain or other possible symptoms suggestive of heart disease. If you are having chest pain or other potential cardiovascular symptoms, see your physician. Calcium Score: Left main = 0 Left anterior descending = 0 Left circumflex = 0 Right coronary artery = 0 Total calcium score = 0 This places the patient at the 0 percentile for matched age and gender. Assessment: Your cardiac CT examination has shown no measurable calcified coronary plaque. Your coronary artery calcium score is zero. Having zero calcified plaque in the arteries that supply your heart is associated with a low risk for heart attack over the next 5 years. As discussed above, the coronary artery calcium score is intended for risk assessment in patients without cardiovascular symptoms. The low risk associated with having zero calcified plaque does not apply to individuals who are having symptoms. If you are having chest pain or other potential cardiovascular symptoms, see your physician. Recommendations: To maintain a low cardiovascular risk, we strongly recommend adherence to healthy lifestyle behaviors including: - Following a heart healthy diet focused on modest portion sizes, a high intake of fresh fruits and vegetables, whole grains, healthy fats (olive oil, nuts and seeds, avocados), and healthy proteins (unprocessed meats, fish, legumes). - Following an active lifestyle including 30-45 minutes of moderate intensity exercise 5-6 times per week - Avoidance of tobacco products. The scientific evidence would suggest that the majority of individuals with a coronary artery calcium score of zero are at low risk for a heart attack, low enough risk that they are unlikely to benefit from preventive cardiovascular medication including aspirin and the cholesterol lowering statin medications. We recommend that individuals with a coronary artery calcium score of zero avoid taking a daily aspirin to prevent heart disease, as they are unlikely to benefit from aspirin, and aspirin use is associated with a small increase in the risk of bleeding. Unless you have markedly elevated cholesterol or diabetes, the scientific evidence would suggest that individuals with a calcium score of zero can potentially avoid taking cholesterol-lowering medications for the next 3-5 years. These recommendations are generalized and may not specifically apply to you as an individual. Your primary care physician is in the best position to provide advice on your care and clinical decisions should ultimately be made by you and your physician. EXTRA-CARDIAC FINDINGS: No lower hilar adenopathy. The visualized portions of the lungs show no focal pulmonary opacities. No pneumothorax. No other bony or soft tissue abnormalities identified. Please note that all CT scans at this facility use dose modulation, iterative reconstruction, and/or weight-based dosing when appropriate to reduce radiation dose to as low as reasonably achievable. Dictated by Liang Davila MD @ 06/27/2025 10:25:17 AM (Electronically Signed) Procedure Note Liang Davila MD - 06/27/2025 For Patients: As a result of the Cures Act, medical imagingexams and procedure reports are released immediately into your electronicmedical record. You may view this report before your referring provider.If you have questions, please contact your health care provider. CT CARDIAC CALCIUM SCORING PATIENT HISTORY: Evaluate for coronary artery disease. REPORT: High-resolution, ECG-synchronized noncontrast computed tomographyof the heart with attention to the coronary arteries was performed. Coronary calcification analyzed using Siemens calcium scoring software.These are the results of the evaluation: CT Calcium Scoring: This cardiac CT examination will provide you with acoronary artery calcium score. A coronary artery calcium score is ameasurement of the amount of calcified plaque in the coronary arteries,the arteries that supply blood to the heart muscle. The coronary arterycalcium score is calculated based on the number, size, and density of thecalcified plaques in the coronary arteries. The amount of calcifiedcoronary plaque has been shown to directly correlate with future risk forheart disease. The coronary artery calcium is a marker of how much plaque has accumulatedin the mcdonald of the coronary arteries. It is not a test for blockages.This test is intended to assess cardiovascular risk in patients withoutsymptoms. It is not intended to be a test for individuals with chest painor other possible symptoms suggestive of heart disease. If you are havingchest pain or other potential cardiovascular symptoms, see yourphysician. Calcium Score: Left main = 0 Left anterior descending = 0 Left circumflex = 0 Right coronary artery = 0 Total calcium score = 0 This places the patient at the 0 percentile for matched age and gender. Assessment: Your cardiac CT examination has shown no measurable calcifiedcoronary plaque. Your coronary artery calcium score is zero. Having zero calcified plaque in the arteries that supply your heart isassociated with a low risk for heart attack over the next 5 years. As discussed above, the coronary artery calcium score is intended for riskassessment in patients without cardiovascular symptoms. The low riskassociated with having zero calcified plaque does not apply to individualswho are having symptoms. If you are having chest pain or other potentialcardiovascular symptoms, see your physician. Recommendations: To maintain a low cardiovascular risk, we strongly recommend adherence tohealthy lifestyle behaviors including: - Following a heart healthy diet focused on modest portion sizes, a highintake of fresh fruits and vegetables, whole grains, healthy fats (oliveoil, nuts and seeds, avocados), and healthy proteins (unprocessed meats,fish, legumes). - Following an active lifestyle including 30-45 minutes of moderateintensity exercise 5-6 times per week - Avoidance of tobacco products. The scientific evidence would suggest that the majority of individualswith a coronary artery calcium score of zero are at low risk for a heartattack, low enough risk that they are unlikely to benefit from preventivecardiovascular medication including aspirin and the cholesterol loweringstatin medications. We recommend that individuals with a coronary artery calcium score of zeroavoid taking a daily aspirin to prevent heart disease, as they areunlikely to benefit from aspirin, and aspirin use is associated with asmall increase in the risk of bleeding. Unless you have markedly elevated cholesterol or diabetes, the scientificevidence would suggest that individuals with a calcium score of zero canpotentially avoid taking cholesterol-lowering medications for the next 3-5years. These recommendations are generalized and may not specifically apply toyou as an individual. Your primary care physician is in the best positionto provide advice on your care and clinical decisions should ultimately bemade by you and your physician. EXTRA-CARDIAC FINDINGS: No lower hilar adenopathy. The visualized portionsof the lungs show no focal pulmonary opacities. No pneumothorax. No other bony or soft tissue abnormalities identified. Please note that all CT scans at this facility use dose modulation,iterative reconstruction, and/or weight-based dosing when appropriate toreduce radiation dose to as low as reasonably achievable. Dictated by Liang Davila MD @ 06/27/2025 10:25:17 AM (Electronically Signed) Juvencio Russell MD CT Final R esult * (ABNORMAL) LIPID PANEL W REFLEX MEASURED LDL (05/14/2025 9:04 AM CDT) [facility] CHOLESTEROL, TOTAL 189 <200 mg/dL 05/15/2025 5:10 AM CDT [facility] TRIGLYCERIDES 51 <150 mg/dL 05/15/2025 5:10 AM CDT [facility] HDL CHOLESTEROL 47 > OR = 40 mg/dL 05/15/2025 5:10 AM CDT [facility] NON HDL CHOLESTEROL 142(H) <130 mg/dL (calc) 05/15/2025 5:10 AM CDT [facility] Comment: For patients with diabetes plus 1 major ASCVD risk factor, treating to a non-HDL-C goal of <100 mg/dL (LDL-C of <70 mg/dL) is considered a therapeutic option. CHOL/HDLC RATIO 4.0 <5.0 (calc) 05/15/2025 5:10 AM CDT [facility] LDL-CHOLESTEROL 128(H) mg/dL (calc) 05/15/2025 5:10 AM CDT [facility] Comment: Reference range: <100 Desirable range <100 mg/dL for primary prevention; <70 mg/dL for patients with CHD or diabetic patients with > or = 2 CHD risk factors. LDL-C is now calculated using the Slim calculation, which is a validated novel method providing better accuracy than the Friedewald equation in the estimation of LDL-C. Talha SS et al. MILLER. 2013;310(19): 3331-6315 (http://education.Right Relevance/faq/AOB972) Blood BLOOD SPECIMEN / Unknown [facility] / Unknown 05/14/2025 9:04 AM CDT 05/14/2025 9:04 AM CDT [facility] Earnest Russell MD CHEMISTRY Final R esult [employer] [address] [address], from Last 3 Months or Most Recently Relevant to Health Maintenance Insurance [facility] x5 (Home) [phone] x5 (Work) ATTN [employer] PAYABLE [address] [address] [place] [address] Care Teams Early Intervention School Psychologist Relationship Specialty Start [place] [address] [place] [address] PCP - General Family Practice 12/06/20
--- OUTSIDE RECORDS SUMMARY | 2025-08-18 12:37 | XMS_ITS | Clinical Summary ---
Author Organization [facility] Address [address] [place] [address] Care Team Providers Care Civil Manager Name Role Phone Juvencio Russell MD Primary Care Provider Josselyn Mackey PA-C Unavailable [phone] Allergies No known active allergies Medications VYVANSE 40 mg oral capsule Take 1 capsule (40 mg) by mouth once daily. Active loratadine (CLARITIN) 10 mg oral tablet Take 1 tablet (10 mg) by mouth Daily. 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 Social History Tobacco Use Types Packs/Day Years Used Date Smoking Tobacco: Never Smokeless Tobacco: Never Tobacco Cessation:Counseling Given: Not Answered Sex and Gender Information Value Date Recorded Sex Assigned at Not on file Legal Sex Male 1:12 PM CDT Gender Identity Not on file Sexual Orientation Not on file Last Filed Vital Signs Vital Sign Reading Time Taken Comments Blood Pressure - - Pulse - - Temperature - - Respiratory Rate - - Oxygen Saturation - - Inhaled Oxygen Concentration - - Weight 104.3 kg (230 lb) 01/19/2025 10:14 AM CDT Height 190.5 cm (6' 3) 01/19/2025 10:14 AM CDT Body Mass Index 28.75 01/19/2025 10:14 AM CDT Plan of Treatment Health Maintenance Due Date Last Done Comments Diabetes Screening 1990 Hepatitis C Screening 1990 Lipid Screening 1990 Anxiety Screening (DIA-2) 1991 Depression Assessment (PHQ-2) 1991 HPV Vaccine (1 - 3-dose SCDM series) 2017 Influenza Vaccine (#1) 2025 , 10/21/2023, 09/23/2019 Adult Tetanus Booster 05/26/2029 05/26/2019 RSV Vaccines (1 - 1-dose 75+ series) 2065 COVID-19 Vaccine Completed 09/26/2024, 08/2024, 09/15/2021, Additional history exists Meningococcal B Vaccine Aged Out No l onger eligible based on patient's age to complete this topic Pneumococcal Vaccine Aged Out No long er eligible based on patient's age to complete this topic Insurance [facility] Care Teams Civil Manager Relationship Specialty Start [place] [address] [place] [address] PCP - General Family Medicine 01/11/25 Josselyn Mackey PA-C [address] [facility] [address] [place] [address] Neurology 01/11/25
--- OUTSIDE RECORDS SUMMARY | 2025-08-18 12:37 | XMS_ITS | Encounter Summary ---
Author Organization Page Address [address] [place] [address] Care Team Providers Care Sheet Ironworker Name Role Phone No Ref-Primary, Physician Primary Care Provider Nicholas Robbins MD Unavailable Sergo Tesfaye MD Unavailable Encounter Details Date Type Department Care Team (Late st Contact Info) Description 04/17/2025 MyC Medical Advice [facility] [place] [id number] [place] [address] [address] [place] [address] Terrie Cornejo Social History Tobacco Use Types Packs/Day Years Used Date Smoking Tobacco: Never Smokeless Tobacco: Never Alcohol Use Standard Drinks/Week Comments Yes 0 (1 standard drink = 0.6 oz pur e alcohol) rarely Interpersonal Safety Answer Date Record ed Do you feel physically and e motionally safe where you currently live? Yes 02/19/2025 Within the past 12 months, h ave you been hit, slapped, kicked or otherwise physically hurt by someone? No 02/19/2025 Within the past 12 months, h ave you been humiliated or emotionally abused in other ways by your partner or ex-partner? No 02/19/2025 Sex and Gender Information Value Date Recorded Sex Assigned at Not on file Legal Sex Male 7:29 AM CDT Gender Identity Not on file Sexual Orientation Not on file documented as of this encounter Plan of Treatment Upcoming Encounters Date Type Department Care Team (Latest Contact Info) Description 08/30/2025 9:15 AM CAR REPOSSESSOR Hospital Encounter [facility] [address] [facility] [address] [place] [phone] Sergo Tesfaye MD [address] [place] [address] 08/30/2025 9:15 AM CAR REPOSSESSOR - 08/30/2025 10:40 AM CAR REPOSSESSOR Surgery [facility] [address] [facility] [address] [place] [phone] Sergo Tesfaye MD [address] [place] [address] RELEASE, CUBITAL TUNNEL, ULNAR NERVE TRANSPOSITION 09/12/2025 10:30 AM CAR REPOSSESSOR Office Visit [facility] [place] [address] [facility] [address] [place] [address] Seng Philip PA-C [address] [place] [address] Scheduled Procedures Name Priority Associated Diagnoses Date/Ti me RELEASE, CUBITAL TUNNEL Ulnar nerve entrapment at elbow, left 08/30/2025 9:15 AM CAR REPOSSESSOR documented as of this encounter Goals Goal Patient Goal Type Associated Problems Recent Progress Patient-Stated? Author MYC ECC SURG ENROLL Care Plan MyC ECC SURG ENROLL No Terrie Cornejo MYC ECC OPY 000 YOU MAY BE ENROLLED (HIGH RISK) - GOAL TEMPLATE Care Plan MYC ECC OPY 000 YOU MAY BE ENROLLED (HIGH RISK) - PROBLEM TEMPLATE Terrie Wilder documented as of this encounter Visit Diagnoses Not on filedocumented in this encounter Additional Health Concerns Active Problems Noted Date Diagnosed Date MyC ECC SURG ENROLL 04/17/2025 MYC ECC OPY 000 YOU MAY BE E NROLLED (HIGH RISK) - PROBLEM TEMPLATE 04/17/2025 documented as of this encounter Care Teams Sheet Ironworker Relationship Specialty Start Date End Date No Ref-Primary, Physician PCP - General 02/19/25 Nicholas Robbins MD [address] [place], [place] [id number] [address] Assigned Neuroscience Provider 03/02/25 Sergo Tesfaye MD [address] [place] [address] Assigned Musculoskeletal Provider 04/02/25 documented as of this encounter
--- OUTSIDE RECORDS SUMMARY | 2025-08-18 12:37 | XMS_ITS | Encounter Summary ---
Author Organization [facility] Address [address] [place] [address] Care Team Providers Care Document Management Technician Name Role Phone No Ref-Primary, Physician Primary Care Provider Nicholas Robbins MD Unavailable Sergo Tesfaye MD Unavailable Encounter Details Date Type Department Care Team (Late st Contact Info) Description 03/26/[address] [facility] [id number] [place] [address] [address] [place] [address] Terrie Cornejo Social History Tobacco [...] (Latest Contact Info) Description 08/30/2025 9:15 AM SENIOR DATA ARCHITECT Hospital Encounter [facility] [address] [facility] [address] [place] [phone] Sergo Tesfaye MD [address] [place] [address] 08/30/2025 9:15 AM SENIOR DATA ARCHITECT - 08/30/2025 10:40 AM SENIOR DATA ARCHITECT Surgery [facility] [address] [facility] [address] [place] [phone] Sergo Tesfaye MD [address] [place] [address] RELEASE, CUBITAL TUNNEL, ULNAR NERVE TRANSPOSITION 09/12/2025 10:30 AM SENIOR DATA ARCHITECT Office Visit [facility] [address] [facility] [address] [place] [address] Seng Philip PA-C [address] [place] [address] Scheduled Procedures Name Priority Associated Diagnoses Date/Ti me RELEASE, CUBITAL TUNNEL Ulnar nerve entrapment at elbow, left 08/30/2025 9:15 AM SENIOR DATA ARCHITECT documented as of this encounter Visit Diagnoses Not on filedocumented in this encounter Care Teams Document Management Technician Relationship Specialty Start Date End Date No Ref-Primary, Physician PCP - General 02/19/25 Nicholas Robbins MD [address] [facility] [id number] [place] [address] Assigned Neuroscience Provider 03/02/25 Sergo Tesfaye MD [address] [place] [address] Assigned Musculoskeletal Provider 04/02/25 documented as of this encounter
--- OUTSIDE RECORDS SUMMARY | 2025-08-18 12:37 | XMS_ITS | Clinical Summary ---
Author Organization [facility] Address [facility]ly [facility] [place] [address] Care Team Providers Care Yarding Engineer Name Role Phone No Ref-Primary, Physician Primary Care Provider Nicholas Robbins MD Unavailable Sergo Tesfaye MD Unavailable Allergies No known active allergies Medications No known medications Active Problems Problem Noted Date Diagnosed Date Numbness and tingling in left hand 02/19/2025 Ulnar nerve entrapment at elbow, left 02/19/2025 Family History Relation Status Comments Brother Alive Father Alive Maternal Grandfather Alive Maternal Grandmother Mother Alive Paternal Grandfather Paternal Grandmother Sister Alive Social History Tobacco Use Types Packs/Day Years [...] Sign Reading Time Taken Comments Blood Pressure 128/74 10/14/2017 3:32 PM ACTIVATED SLUDGE ATTENDANT Pulse 66 10/14/2017 3:14 PM ACTIVATED SLUDGE ATTENDANT Temperature 36.4 C (97.5 F) 10/14/2017 3:14 PM ACTIVATED SLUDGE ATTENDANT Respiratory Rate - - Oxygen Saturation 98% 10/14/2017 3:14 PM ACTIVATED SLUDGE ATTENDANT Inhaled Oxygen Concentration - - Weight 104.3 kg (230 lb) 03/20/2025 8:57 AM CDT Height 190.5 cm (6' 3) 03/20/2025 8:57 AM CDT Body Mass Index 28.75 03/20/2025 8:57 AM CDT Plan of Treatment Upcoming Encounters Date Type Department Care Team (Latest Contact Info) Description 08/30/2025 9:15 AM ACTIVATED SLUDGE ATTENDANT Hospital Encounter [address] [phone] Sergo Tesfaye MD [address] [place], [place] [address] 08/30/2025 9:15 AM ACTIVATED SLUDGE ATTENDANT - 08/30/2025 10:40 AM ACTIVATED SLUDGE ATTENDANT Surgery [address] [phone] Sergo Tesfaye MD [address] [place], [place] [address] RELEASE, CUBITAL TUNNEL, ULNAR NERVE TRANSPOSITION 09/12/2025 10:30 AM ACTIVATED SLUDGE ATTENDANT Office Visit [facility] [address] [place] [address] Seng Philip PA-C [facility] [address] [place] [id number] Scheduled Procedures Name Priority Associated Diagnoses Date/Ti me RELEASE, CUBITAL TUNNEL Ulnar nerve entrapment at elbow, left 08/30/2025 9:15 AM ACTIVATED SLUDGE ATTENDANT Health Maintenance Due Date Last Done Comments ADVANCE CARE PLANNING 1990 ANNUAL REVIEW OF HM ORDERS 1990 DIABETES SCREENING 1990 HIV SCREENING 2005 HEPATITIS C SCREENING 2008 HEPATITIS B VACCINE (1 of 3 - 19+ 3-dose series) 2009 PHQ-2 (once per calendar year) 2024 YEARLY PREVENTIVE VISIT 01/30/2025 01/31/20 24, 05/06/2023, 12/10/2020 COVID-19 VACCINE ( season) 2025 09/26/2024, 10/21/2023, 09/15/2021, Additional history exists INFLUENZA VACCINE (#1) 2025 , 10/21/2023, 09/23/2019 DTAP/TDAP/TD VACCINE (2 - Td or Tdap) 05/26/2029 05/26/2019 ZOSTER VACCINE (1 of 2) 2040 HPV VACCINE (No Doses Required) Completed MENINGITIS VACCINE Aged Out No longer eligible based on patient's age to complete this topic PNEUMOCOCCAL VACCINE: PEDIATRICS (0 to 5 YEARS) AND AT-RISK PATIENTS (6 to 49 YEARS) Aged Out No longer eligible based on patient's age to complete this topic Goals Goal Patient Goal Type Associated Problems Recent Progress Patient-Stated? Author MYC ECC SURG ENROLL Care Plan MyC ECC SURG ENROLL No Terrie Cornejo MYC ECC OPY 000 YOU MAY BE ENROLLED (HIGH RISK) - GOAL TEMPLATE Care Plan MYC ECC OPY 000 YOU MAY BE ENROLLED (HIGH RISK) - PROBLEM TEMPLATE Terrie Wilder Additional Health Concerns Active Problems Noted Date Diagnosed Date MyC ECC SURG ENROLL 04/17/2025 MYC ECC OPY 000 YOU MAY BE E NROLLED (HIGH RISK) - PROBLEM TEMPLATE 04/17/2025 Insurance [employer] Care Teams Yarding Engineer Relationship Specialty Start Date End Date No Ref-Primary, Physician PCP - General 02/19/25 Nicholas Robbins MD [address] [place] [address] [id number] [place], [place] [address] Assigned Neuroscience Provider 03/02/25 Sergo Tesfaye MD [address] [place] [address] Assigned Musculoskeletal Provider 04/02/25
[2025-08-18 12:38] VITALS: BP 147/93; PULSE 84; RESP 20; TEMP 36.9; O2SAT 97; BMI 30.1
[2025-08-18 13:02] LABS: Appearance Urine Clear (Clear)
--- NOTE | 2025-08-18 13:10 | CRLHL7_ITS ---
For Patients: As a result of the Century Cures Act, medical imaging exams and procedure reports are released immediately into your electronic medical record. You may view this report before your referring provider. If you have questions, please contact your health care provider. INDICATION: Right flank pain. TECHNIQUE: CT abdomen and pelvis without contrast. COMPARISON: CT abdomen/pelvis dated 07/18/2024. FINDINGS: Evaluation of solid organs is limited secondary to lack of IV contrast administration. Liver: No suspicious focal hepatic lesion. Gallbladder and bile ducts: Gallbladder is decompressed, suboptimally evaluated. No calcified gallstones. Pancreas: Unremarkable. Spleen: Unremarkable. Adrenal glands: Unremarkable. Kidneys: 0.4 cm calculus near the right ureteropelvic junction (series 2, image 72), which has migrated from an upper pole calyx since prior study. No significant obstruction/hydronephrosis is present at this time. There are additional punctate nonobstructing bilateral renal calculi noted. Retroperitoneum: No lymphadenopathy. Bowel and mesentery: Bowel is not obstructed. No significant ascites. Normal appendix. Bladder: Unremarkable for degree of distention. Reproductive organs: No prostatomegaly. Pelvic lymph nodes: No lymphadenopathy. Vessels: Unremarkable for unenhanced study. Abdominal wall: No acute abdominal wall abnormality. Bones: Multilevel degenerative changes of the spine. No suspicious/aggressive focal osseous lesion. Lower chest: No focal consolidation. IMPRESSION: 1. A 0.4 cm calculus near the right ureteropelvic junction which has migrated from an upper pole calyx since prior study. No significant obstruction/hydronephrosis is present at this time. 2. Additional punctate nonobstructive bilateral renal calculi. Please note that all CT scans at this facility use dose modulation, iterative reconstruction, and/or weight-based dosing when appropriate to reduce radiation dose to as low as reasonably achievable. Dictated by Tricia Black MD @ 08/18/2025 3:12:25 PM (Electronically Signed)
--- NOTE | 2025-08-18 13:11 | ED.BACK ---
HPI - Back Pain/Injury General Chief Complaint: Back Injury/Pain Stated Complaint: Back Pain, Blood in Urine Time Seen by Provider: 08/18/25 12:48 History of Present Illness HPI Narrative: Patient is a 35-year-old gentleman with history of kidney stones who began urinating red yesterday. He really have any pain until this morning when he had the return of is right flank pain he has had the past with kidney stones. He has no signs of ascending infection no fevers no chills no night sweats no cough no shortness of breath. No significant dysuria. Pain is sharp and located in the right flank. No other concerning symptoms. Related Data Home Medications ?Medication ?Instructions ?Recorded ?Confirmed dextroamphetamine-amphetamine 10 1 tab PO DAILY 08/18/25 08/18/25 mg tablet Previous Rx's ?Medication ?Instructions ?Recorded tamsulosin 0.4 mg capsule (Flomax) 0.4 mg PO QHS #14 caps 07/18/24 hydrocodone 5 mg-acetaminophen 325 1 tab PO TID PRN pain #10 tabs 08/18/25 mg tablet ketorolac 10 mg tablet 10 mg PO Q8H PRN pain #10 tabs 08/18/25 ondansetron HCl 4 mg tablet 4 mg PO Q8H PRN nausea and 08/18/25 vomiting 3 days #9 tabs tamsulosin 0.4 mg capsule (Flomax) 0.4 mg PO DAILY #14 caps 08/18/25 Allergies Allergy/AdvReac Type Severity Reaction Status Date / Time No Known Drug Allergies Allergy Verified 08/18/25 12:43 Review of Systems Status of ROS: Reports: 10 or more systems reviewed and unremarkable except as noted in History and below [facility] Social History Smoking Status: Never smoker Do you use any of these nicotine containing products: None Second hand tobacco smoke exposure: No How often do you have a drink containing alcohol: monthly or less AUDIT-C Alcohol total score: 1 Non-prescribed substance use: denies use Exam Narrative: Exam Narrative: EXAM GENERAL: Patient appears comfortable and well. EYES: No scleral icterus. LYMPH: No supraclavicular or cervical lymphadenopathy. SKIN: Visible skin seen during exam normal or with benign process only. EXT: No dependent lower extremity pedal edema. HEART: Regular rate and rhythm with no murmurs, rubs, or gallops. LUNGS: Clear to auscultation bilaterally with no crackles or wheezes. ABD: Soft, non tender, non distended. PSYCH: Good eye contact, speech is not pressured. Const: Vital Signs, click to edit/add: Vital Signs - 24 hr 08/18/25 12:38 Temperature 98.4 F Pulse Rate [Pulse Oximeter] 84 Respiratory Rate 20 Blood Pressure [Ri ght Upper Arm] 147/93 H Pulse Oximetry 97 Oxygen Delivery Me thod Room Air Course Course ED Course: Patient presents with symptoms consistent with renal lithiasis. I did obtain a CT without contrast abdomen pelvis CBC electrolytes urinalysis. Patient given L of normal saline 30 of Toradol and 4 of Zofran. Vital Signs Vital signs: Initial Vital Signs Temperature 98.4 F 08/18/25 12:38 Temperature Source Oral 08/18/25 12:38 Pulse Rate 84 08/18/25 12:38 Respiratory Rate 20 08/18/25 12:38 Blood Pressure 147/93 H 08/18/25 12:38 Blood Pressure Mean 111 H 08/18/25 12:38 Blood Pressure Position Sitting 08/18/25 12:38 Pulse Oximetry 97 08/18/25 12:38 Oxygen Delivery Method Room Air 08/18/25 12:38 Vital Signs Temperature 98.4 F 08/18/25 12:38 Pulse Rate 84 08/18/25 12:38 Respiratory Rate 20 08/18/25 12:38 Blood Pressure 147/93 H 08/18/25 12:38 Pulse Oximetry 97 08/18/25 12:38 Oxygen Delivery Method Room Air 08/18/25 12:38 Temperature 98.4 F 08/18/25 12:38 Pulse Rate 84 08/18/25 12:38 Respiratory Rate 20 08/18/25 12:38 Blood Pressure 147/93 H 08/18/25 12:38 Pulse Oximetry 97 08/18/25 12:38 Oxygen Delivery Method Room Air 08/18/25 12:38 Medications Administered Medications: Discontinued Medications Generic Name Dose Route Start Last Admin Trade Name Freq PRN Reason Stop Dose Admin Sodium Chloride 1,000 mls @ 1,000 mls/hr 08/18/25 13:07 08/18/25 14:15 0.9 % Sodium Chloride 1000 Ml IV 08/18/25 14:06 Infused .Q1H RYLAN Infusion Ketorolac Tromethamine 30 mg 08/18/25 13:07 08/18/25 13:30 Ketorolac 30 Mg/Ml Inj IVP 08/18/25 13:08 30 mg ONCE ONE Administration Ondansetron HCl 4 mg 08/18/25 13:07 08/18/25 13:30 Ondansetron 2 Mg/Ml Inj IVP 08/18/25 13:08 4 mg ONCE ONE Administration MDM - Back Pain/Injury MDM Narrative Medical decision making narrative: Patient is a 35-year-old gentleman with a known history of kidney stones who presents with right flank pain. Evaluation shows only hematuria and a 4 mm right ureteral stone. He has 2 small stones in the right kidney. His pain is much better after Toradol and normal saline. This time will be discharged home on Flomax oral Toradol [place] and Zofran. He will follow-up with primary physician as he drink plenty fluids and continue his current diet activity level. No driving or using machinery while taking the [place]. Lab Data Labs: Lab Results 08/18/25 08/18/25 Range/Units 12:45 13:16 WBC 6.83 (4.50-11.00) K/uL RBC 5.75 (4.30-5.90) m/uL Hgb 17.5 (13.5-17.5) gm/dL Hct 50.4 (37.0-53.0) % MCV 88 (80-100) fL MCH 30 (26-34) pg MCHC 35 (32-36) gm/dL RDW Coeff of Asha 11.9 (11.5-15.5) % Plt Count 247 (140-440) K/uL Neut % (Auto) 55.6 (42.0-72.0) % Lymph % (Auto) 31.0 (20-44) % Caroline % (Auto) 9.2 (0.0-11.0) % Eos % (Auto) 3.5 (0.0-7.0) % Baso % (Auto) 0.6 (0.0-3.0) % Neut # (Auto) 3.79 (1.7-7.0) K/uL Lymph # (Auto) 2.12 (0.90-2.90) K/uL Caroline # (Auto) 0.60 (0.00-0.90) K/UL Eos # (Auto) 0.24 (0.00-0.50) K/uL Baso # (Auto) 0.04 (0.00-0.30) K/uL Abs Immat Gran (auto) 0.01 (0.00-0.30) K/uL Imm/Tot Granulo (auto) 0.1 % Sodium 137 (135-149) mmol/L Potassium 3.6 (3.6-5.1) mmol/L Chloride 97 (96-114) mmol/L Carbon Dioxide 28 (20-32) mmol/L Anion Gap 12 (7-15) mEq/L BUN 14 (5-24) mg/dL Creatinine 1.1 (0.5-1.5) mg/dL Estimated Creat Clear 112.03 Estimated GFR 90 ml/min Glucose 85 (60-115) mg/dL Calcium 9.0 (8.4-10.6) mg/dL Total Bilirubin 1.8 H (0.1-1.5) mg/dL AST 43 H (12-35) U/L ALT 67 H (4-50) U/L Alkaline Phosphatase 67 (40-150) U/L Total Protein 8.2 (6.0-8.3) g/dL Albumin 4.8 (3.3-5.0) g/dL Urine Color Yellow (Yellow) Urine Appearance Clear (Clear) Urine pH 6.0 (5.0-8.5) Ur Specific [place] <= 1.005 (1.000-1.030) Urine Protein Negative (Negative) Urine Glucose (UA) Negative (Negative) Urine Ketones Negative (Negative) Urine Blood 3+ A (Negative) Urine Nitrite Negative (Negative) Urine Bilirubin Negative (Negative) Urine Urobilinogen 0.2 (0.2-1.0) Ur Leukocyte Esterase Negative (Negative) Urine RBC 0-2 (0-2) Urine WBC 0-2 (0-5) Ur Squamous Epith Cells None (None-Few) Urine Bacteria None (None) Discharge Plan Discharge Clinical Impression: Kidney stone Patient Disposition: Home, Self-Care Condition: Stable Instructions: Kidney Stones (ED) Additional Instructions: Medications as directed including oral Toradol [place] Zofran and Flomax as sent to your pharmacy. Drink plenty fluids. Follow-up with your doctor as needed. Activity Level: No Restrictions Discharge Diet: Regular Prescriptions: New tamsulosin [Flomax] 0.4 mg capsule 0.4 mg PO DAILY Qty: 14 3RF hydrocodone-acetaminophen 5-325 mg tablet 1 tab PO TID PRN (Reason: pain) Qty: 10 0RF ondansetron HCl 4 mg tablet 4 mg PO Q8H PRN (Reason: nausea and vomiting) 3 Days Qty: 9 0RF ketorolac 10 mg tablet 10 mg PO Q8H PRN (Reason: pain) Qty: 10 0RF No Action tamsulosin [Flomax] 0.4 mg capsule 0.4 mg PO QHS Qty: 14 0RF dextroamphetamine-amphetamine 10 mg tablet 1 tab PO DAILY Follow Up/Referrals: Juvencio Russell MD [Primary Care Provider, Family Practice] [facility]
[2025-08-18] MEDS: ONDANSETRON 2 MG/ML inj 4 MG IVP (13:30)
[2025-08-18 13:39] LABS: Hematocrit* 50.4 % (37.0-53.0); Hemoglobin* 17.5 gm/dL (13.5-17.5); Immature Granulocytes Abs Auto 0.01 K/uL (0.00-0.30); Immature Granulocytes Pct Auto 0.1 %; Lymphocytes Absolute Auto 2.12 K/uL (0.90-2.90); Mean Corpuscular HGB Conc 35 gm/dL (32-36); Mean Corpuscular Hemoglobin 30 pg (26-34); Mean Corpuscular Volume 88 fL (80-100); RDW Coefficient of Variation % 11.9 % (11.5-15.5); Red Blood Count* 5.75 m/uL (4.30-5.90); White Blood Count* 6.83 K/uL (4.50-11.00)
[2025-08-18 13:40] LABS: Slide Review Reflex No
[2025-08-18 13:42] LABS: Chloride* 97 mmol/L (96-114)
[2025-08-18 13:43] LABS: Albumin* 4.8 g/dL (3.3-5.0); Potassium* 3.6 mmol/L (3.6-5.1); Sodium* 137 mmol/L (135-149)
[2025-08-18 13:45] LABS: Alanine Aminotransferase* 67 U/L (4-50); Anion Gap 12 mEq/L (7-15); Aspartate Amino Transferase* 43 U/L (12-35); Blood Urea Nitrogen* 14 mg/dL (5-24); Carbon Dioxide* 28 mmol/L (20-32); Creatinine* 1.1 mg/dL (0.5-1.5); Est. Creatinine Clearance* 112.03; Estimated Glomerular Filt Rate 90 ml/min
[2025-08-18 13:46] LABS: Alkaline Phosphatase* 67 U/L (40-150); Bilirubin Total* 1.8 mg/dL (0.1-1.5); Calcium* 9.0 mg/dL (8.4-10.6); Glucose* 85 mg/dL (60-115); Total Protein* 8.2 g/dL (6.0-8.3)
[2025-08-18 15:40] VITALS: BP 147/93; PULSE 84; RESP 20; TEMP 36.9
== END 2025-08-18 15:30 | disposition home or self-care (01) ==
PROVIDERS: Emergency Provider Internal Medicine; PCP Family Medicine
DX: N20.0 Calculus of kidney (principal); R10.A1 Flank pain, right side
CPT/HCPCS: 36415; 74176; 80053; 81001; 81003; 85025; 96361; 96374; 96375; 99283; 99284; J1885; J2405; J7030